=== PATIENT | female | born 1945 | race Caucasian/White ===

== ENCOUNTER 2017-12-27 06:24 | Inpatient (IN) | payer OTHER ==
[~2017-12-27] VITALS: Ht 157.5 cm; Wt 65.5 kg
[~2017-12-27 06:24] MED LIST: CYCLOBENZAPRINE10 M1 PO
--- NOTE | 2017-12-27 07:46 | ED GI/GU/ABDOMINAL COMPLAINT ---
See Addendum History of Present Illness General Chief Complaint: General Adult Stated Complaint: ?RECTAL BLEEDING PER PT Source: patient Exam Limitations: no limitations Vital Signs & Intake/Output Vital Signs & Intake/Output Vital Signs Date Time Temp Pulse Resp B/P B/P Pulse O2 O2 Flow FiO2 Mean Ox Delivery Rate 12/27 836 97.5 78 20 135/61 98 Room Air 12/27 636 97.5 88 20 168/74 98 Room Air Allergies Coded Allergies: Sulfa (Sulfonamide Antibiotics) (Intermediate, RASH 12/27/17) Penicillins (Intermediate, NAUSEA 12/27/17) Uncoded Allergies: BLOOD PRESSURE MEDICINE (Intermediate, RASH, HIVES 04/24/14) Reconcile Medications Cyclobenzaprine HCl 10 MG TABLET 1 TAB PO TID PRN muscle strain/spasm Triage Note: PT TO ED C/O RECTAL BLEEDING SINCE THIS AM. DENIES BLOOD THINNERS. STATES SHE NOTICED IT WHILE VOIDING THIS AM. DENIES ABD PAIN, N/V/D. STATES BLOOD COULD BE FROM VAGINA, PT UNSURE. Triage Nurses Notes Reviewed? yes ? N Is pt currently ? No HPI: 72-year-old female with history of diverticulosis presents with GI bleeding this morning. Negative for blood thinners. Patient was voiding and noticed blood in the toilet and on her stool and tissue paper. Negative for lightheaded or abdominal pain. Past History Travel History Traveled to [place] past 21 day No Medical History Any Pertinent Medical History? see below for history Neurological: NONE EENT: NONE Cardiovascular: hypertension, hyperlipidemia Respiratory: NONE Gastrointestinal: diverticulitis, GERD Hepatic: NONE Renal: NONE Musculoskeletal: NONE Psychiatric: NONE Endocrine: hypothyroidism Surgical History Surgical History: non-contributory Psychosocial History What is your primary language Kazakh Tobacco Use: Quit >30 days ago ETOH Use: denies use Illicit Drug Use: denies illicit drug use Family History Hx Contributory? No Review of Systems Review of Systems Constitutional: Reports: no symptoms. EENTM: Reports: no symptoms. Respiratory: Reports: no symptoms. Cardiovascular: Reports: no symptoms. GI: Reports: no symptoms, bloody stool. Genitourinary: Reports: no symptoms. Musculoskeletal: Reports: no symptoms. Skin: Reports: no symptoms. Neurological/Psychological: Reports: no symptoms. Hematologic/Endocrine: Reports: no symptoms. Immunologic/Allergic: Reports: no symptoms. All Other Systems: Reviewed and Negative Physical Exam Physical Exam General Appearance: well developed/nourished, no apparent distress, comfortable Respiratory: normal breath sounds, lungs clear Cardiovascular: regular rate/rhythm Gastrointestinal: soft, non-tender, FOBT+ with gross blood upon KEE. Rectal: normal rectal tone, bloody stool, hemmorrhoids Core Measures ACS in differential dx? No Sepsis Present: No Sepsis Focused Exam Completed? No Progress Differential Diagnosis: hemorrhoids, GI bleed, vaginal bleeding Plan of Care: Orders Procedure Date/time Status Heart Healthy Diet 12/[address] in observation 12/27 938 Active ED Holding Orders 12/27 938 Active Code Status 12/27 938 Active TROPONIN LEVEL 12/27 712 Complete PARTIAL THROMBOPLASTIN TIME 12/27 712 Complete PROTHROMBIN TIME 12/27 712 Complete COMPREHENSIVE METABOLIC PANEL 12/27 712 Complete CBC WITHOUT DIFFERENTIAL 12/27 712 Complete EKG 12/27 712 Active TYPE & SCREEN (NOT X-MATCH) 12/27 712 Complete Laboratory Tests 12/27/1716: PT 11.2, INR 1.03, APTT 32 12/27/17 0749: Anion Gap 6, Estimated GFR 54 L, BUN/Creatinine Ratio 25.0, Glucose 99, Calcium 9.4, Total Bilirubin 0.4, AST 23, ALT 27, Alkaline Phosphatase 60, Troponin I < 0.01, Total Protein 6.6, Albumin 4.0, Globulin 2.6, Albumin/Globulin Ratio 1.5, CBC w Diff NO MAN DIFF REQ, RBC 3.56 L, MCV 92.0, MCH 31.2 H, MCHC 34.0, RDW 13.9, MPV 8.9, Gran % 51.5, Lymphocytes % 35.3, Monocytes % 7.6, Eosinophils % 5.3 H, Basophils % 0.3, Absolute Granulocytes 3.4, Absolute Lymphocytes 2.3, Absolute Monocytes 0.5, Absolute Eosinophils 0.3, Absolute Basophils 0 Initial ED EKG: normal axis, normal intervals, normal p-waves, normal QRS complex, normal sinus rhythm, no ST T wave changes Departure Departure Disposition: STILL A PATIENT Condition: Stable Clinical Impression Primary Impression: GI bleed Qualifiers: GI bleed type/associated pathology: unspecified gastrointestinal hemorrhage type Qualified Code: K92.2 - Gastrointestinal hemorrhage, unspecified Referrals: Meghann White APRN (PCP/Family) Departure Forms: Customer Survey General Discharge Information Comments Spoke with patient regarding laboratory evaluation and the need for an observational admission. Patient demonstrated understanding and agreed to admission.
[2017-12-27 08:00] LABS: ABSOLUTE BASOPHIL COUNT 0 /CUMM (0.0-0.2); ABSOLUTE EOSINOPHIL COUNT 0.3 /CUMM (0.0-0.7); ABSOLUTE GRANULOCYTE CT 3.4 /CUMM (1.4-6.5); ABSOLUTE LYMPH COUNT 2.3 /CUMM (1.2-3.4); ABSOLUTE MONOCYTE COUNT 0.5 /CUMM (0.10-0.60); BASOPHIL % 0.3 % (0.0-2.0); EOSINOPHIL % 5.3 % (0-5); GRANULOCYTE % 51.5 % (42.2-75.2); HEMATOCRIT 32.8 % (37-47); MEAN CORPUSCULAR HGB 31.2 PG (27.0-31.0); MEAN PLATELET VOLUME 8.9 FL (7.4-10.4); RBC DISTRIBUTION WIDTH 13.9 % (11.5-14.5); RED BLOOD CELL CT 3.56 /CUMM (4.20-5.40); WHITE BLOOD CELL COUNT 6.6 /CUMM (4.8-10.8)
[2017-12-27 08:17] LABS: PLATELET COUNT 206 /CUMM (130-400)
[2017-12-27 09:29] LABS: PT 11.2 SEC (9.4-12.5); PTT 32 SEC (25-37)
[2017-12-27] MEDS ORDERED: LIPITOR10 M1 PO (09:42)
[2017-12-27] MEDS ORDERED: LEVOTHYROXINE50 MCG PO (09:42)
[2017-12-27] MEDS ORDERED: HYZAAR 50-12.51 EACH PO (10:11)
--- NOTE | 2017-12-27 10:30 | History & Physical ---
Baljinder Carter MD 12/27/17 1030: General Information and HPI History of Present Illness: 72-year-old woman with past medical history of hypertension, hyperlipidemia, GERD, diverticulosis, and hypothyroidism seen for evaluation of bright red blood per rectum. Patient reportedly woke up early this morning to use the restroom and noticed that there was a small amount of bright red blood streaked on the toilet paper and a somewhat larger amount in the toilet. Patient became scared and came to the [facility] for evaluation. Patient underwent a screening colonoscopy with her health services information specialist Dr. Downs on 11/01/17 that demonstrated extensive left-sided diverticulosis with small internal hemorrhoids. Patient denies ever having had an episode like this before. She does not take blood thinners or aspirin and very rarely takes NSAIDs for headaches. She was not constipated or straining during her bowel movement this morning and denies any abdominal pain, nausea, vomiting, or diarrhea. Review of systems Additionally she denies any headache, fever, chills, chest pain, palpitations, heartburn, shortness breath, cough. Objective Vitals-temperature 97.5, HR 78-88, RR 20, BP 135-168/61-74, SPO2 98% room air Physical exam -General: Well-developed, well-nourished elderly woman in no acute distress -HEENT: NCAT, PERRLA, EOMI, anicteric sclera, moist mucous membranes -Neck: Supple, no JVD, trachea midline -Cardio: Normal S1/S2 without murmurs/gallops/rubs; regular rate and rhythm -Pulmonary: Clear to auscultation bilaterally -Abdomen: Soft, nontender, nondistended, bowel sounds intact; reportedly guaiac positive brown stool on KEE per ED provider -Neuro: Awake and alert, cranial nerves II through XII grossly intact -Extremities: No edema, normal pulses Diagnostics -CBC: WBC 6.6, hemoglobin 11.1, hematocrit 32.8, platelet 206 -BMP: Sodium 139, potassium 4.1, chloride 104, CO2 29, BUN 25, creatinine 1.0, anion gap 6, glucose 99 -LFT: Within normal limits -Miscellaneous: Troponin I <0.01 INR 1.03 -EKG: Normal sinus rhythm without any ST-T wave segment changes -Screening colonoscopy 11/01/17: 1. Left-sided diverticulosis 2. Small internal hemorrhoids. -EGD with biopsy/balloon dilation 08/02/17: 1. Nonobstructing Schatzki's ring status post balloon dilation to 20 mm with disruption of the ring. 2. 2-3 cm sliding hiatal hernia. 3. Erosive duodenitis status post antral biopsies. Assessment 72-year-old woman with multiple medical problems significant for diverticulosis with recent colonoscopy demonstrating extensive left-sided diverticulosis and small internal hemorrhoids seen for evaluation of new bright red blood per rectum. Patient's bright red blood per rectum may be due to a mild diverticular bleed versus simply hemorrhoidal bleeding. She remains hemodynamically stable without any tachycardia or significant effect on her blood pressure. Her hemoglobin/ hematocrit are within acceptable limits without any recent values to compare to. Patient is being placed under observation on the general medicine floor for hemoglobin monitoring, intravenous fluids, and GI consultation. Problem list -Lower GI bleed, probable diverticular versus hemorrhoidal -History of diverticulosis -History of Schatzki ring -hypertension -Hyperlipidemia -GERD -Hypothyroidism Plan -Place under observation on general medicine floor -2 large-bore peripheral IVs -Normal saline at 75 mL/h -Guaiac all stools -Continue home meds: Atorvastatin, famotidine, levothyroxine, losartan, hydrochlorothiazide -Consider GI consult should patient's bleeding not improve/or worsen -Type and cross -Monitor hemoglobin/hematocrit -Pain control with acetaminophen -Clear liquid diet -DVT prophylaxis with Alps, no pharmacologic prophylaxis due to active bleed -Full code Allergies/Medications Allergies: Coded Allergies: Sulfa (Sulfonamide Antibiotics) (Intermediate, RASH 12/27/17) Penicillins (Intermediate, NAUSEA 12/27/17) Uncoded Allergies: BLOOD PRESSURE MEDICINE (Intermediate, RASH, HIVES 04/24/14) Home Med list Atorvastatin Calcium (Lipitor) 10 MG TABLET 1 TAB PO QPM CHOLESTEROL ( Reported) Famotidine (Pepcid) 20 MG TABLET 1 TAB PO BID GERD (Reported) Levothyroxine Sodium 50 MCG TABLET 1 TAB PO DAILY AC THYROID (Reported) Losartan/Hydrochlorothiazide (Hyzaar 50-12.5 Tablet) 50 MG-12.5 MG TABLET 1 TAB PO DAILY HEART (Reported) Wheat Dextrin (Benefiber) 3 GRAM/3.5 GRAM POWD.PACK 3 G PO DAILY CONSTIPATION (Reported) Past History Travel History Traveled to [place] past 21 day No Medical History Neurological: NONE EENT: NONE Cardiovascular: hypertension, hyperlipidemia Respiratory: NONE Gastrointestinal: diverticulitis, GERD Hepatic: NONE Renal: NONE Musculoskeletal: NONE Psychiatric: NONE Endocrine: hypothyroidism Surgical History Surgical History: non-contributory Past Family/Social History Psychosocial History ETOH Use: denies use Illicit Drug Use: denies illicit drug use Review of Systems Review of Systems Constitutional: Reports: see HPI. Exam & Diagnostic Data Last 24 Hrs of Vital Signs/I&O Vital Signs Date Time Temp Pulse Resp B/P B/P Pulse O2 O2 Flow FiO2 Mean Ox Delivery Rate 12/27 1139 98.1 66 18 135/61 12/27 1026 98.1 66 18 135/61 98 Room Air 12/27 0837 97.5 78 20 135/61 98 Room Air 12/27 0637 97.5 88 20 168/74 98 Room Air Intake & Output 12/27 1600 12/27 0800 09 0000 Intake Total Output Total Balance Patient 65.317 kg Weight Weight Estimated Measurement Method Assessment/Plan As Ranked By This Provider Problem List: 1. GI bleed Qualifiers GI bleed type/associated pathology: unspecified gastrointestinal hemorrhage type Qualified Code: K92.2 - Gastrointestinal hemorrhage, unspecified Core Measures/Misc (01/08) Acute Coronary Syndrome ACS Diagnosis: No Congestive Heart Failure Congestive Heart Failure Diagnosis No Cerebrovascular Accident CVA/TIA Diagnosis: No VTE (View Protocol) VTE Risk Factors Age>40 No Mechanical VTE Prophylaxis d/t N/A MechProphylax Ordered No VTE Pharm Prophylaxis d/t Bleeding (Active) Sepsis (View protocol) Sepsis Present: No If YES complete Sepsis Event Note If YES complete Sepsis Event Note Sofia Paniagua MD 12/27/17 1154: Core Measures/Misc (01/08) Sepsis (View protocol) If YES complete Sepsis Event Note If YES complete Sepsis Event Note Attending MD Review Statement Attending Statement Attending MD Statement: examined this patient, discuss w/resident/PA/AUTOMOTIVE SERVICE ASSISTANT, agreed w/resident/PA/AUTOMOTIVE SERVICE ASSISTANT, reviewed EMR data (avail), discussed with nursing, discussed with case mgmt, amended to note Attending Assessment/Plan: 72-year-old female with past medical history significant for hypertension, hyperlipidemia, hypothyroidism, diverticulosis found on a recent colonoscopy this year as well as erosive duodenitis and nonobstructing Schatzki ring status post balloon dilatation and biopsy results came out for chronic inflammation with H pylori stain negative. Patient presented with bright red blood per rectum this morning. She claims that she had one episode this morning and she got worried and presented to the emergency room. She denies any constipation. On her colonoscopy from this year, small internal hemorrhoids were found. Patient denies any tenesmus, abdominal pain, fevers, chills, nausea or vomiting. She otherwise feels okay. She denies any melanotic stools or hematemesis. No recent fevers or chills. Vital Signs Date Time Temp Pulse Resp B/P B/P Pulse O2 O2 Flow FiO2 Mean Ox Delivery Rate 12/27 1139 98.1 66 18 135/61 12/27 1026 98.1 66 18 13561 98 Room Air 12/27 0837 97.5 78 20 135/61 98 Room Air 12/27 0637 97.5 88 20 168/74 98 Room Air on exam; aox3, nad. cv; s1,s2, rrr resp; clear abd; soft, nt, bs+ ext; no edema Laboratory Tests 12/27 12/27 0916 0749 Chemistry Sodium (137 - 145 mmol/L) 139 Potassium (3.5 - 5.1 mmol/L) 4.1 Chloride (98 - 107 mmol/L) 104 Carbon Dioxide (22 - 30 mmol/L) 29 Anion Gap (5 - 16) 6 BUN (7 - 17 mg/dL) 25 H Creatinine (0.5 - 1.0 mg/dL) 1.0 Estimated GFR (>60 ml/min) 54 L BUN/Creatinine Ratio (7 - 25 %) 25.0 Glucose (65 - 99 mg/dL) 99 Calcium (8.4 - 10.2 mg/dL) 9.4 Total Bilirubin (0.2 - 1.3 mg/dL) 0.4 AST (14 - 36 U/L) 23 ALT (9 - 52 U/L) 27 Alkaline Phosphatase (<127 U/L) 60 Troponin I (< 0.11 ng/ml) < 0.01 Total Protein (6.3 - 8.2 g/dL) 6.6 Albumin (3.5 - 5.0 g/dL) 4.0 Globulin (1.9 - 4.2 gm/dL) 2.6 Albumin/Globulin Ratio (1.1 - 2.2 %) 1.5 Coagulation PT (9.4 - 12.5 SEC) 11.2 INR (0.90 - 1.19) 1.03 APTT (25 - 37 SEC) 32 Hematology CBC w Diff NO MAN DIFF REQ WBC (4.8 - 10.8 /CUMM) 6.6 RBC (4.20 - 5.40 /CUMM) 3.56 L Hgb (12.0 - 16.0 G/DL) 11.1 L Hct (37 - 47 %) 32.8 L MCV (81.0 - 99.0 FL) 92.0 MCH (27.0 - 31.0 PG) 31.2 H MCHC (33.0 - 37.0 G/DL) 34.0 RDW (11.5 - 14.5 %) 13.9 Plt Count (130 - 400 /CUMM) 206 MPV (7.4 - 10.4 FL) 8.9 Gran % (42.2 - 75.2 %) 51.5 Lymphocytes % (20.5 - 51.1 %) 35.3 Monocytes % (1.7 - 9.3 %) 7.6 Eosinophils % (0 - 5 %) 5.3 H Basophils % (0.0 - 2.0 %) 0.3 Absolute Granulocytes (1.4 - 6.5 /CUMM) 3.4 Absolute Lymphocytes (1.2 - 3.4 /CUMM) 2.3 Absolute Monocytes (0.10 - 0.60 /CUMM) 0.5 Absolute Eosinophils (0.0 - 0.7 /CUMM) 0.3 Absolute Basophils (0.0 - 0.2 /CUMM) 0 EKG>> NSR A/P: 72-year-old female with past medical history significant for hypertension, hyperlipidemia, hypothyroidism, diverticulosis found on a recent colonoscopy this year as well as erosive duodenitis and nonobstructing Schatzki ring status post balloon dilatation and biopsy results came out for chronic inflammation with H pylori stain negative is placed on medical observation with GI bleed. This could be secondary to small internal hemorrhoids that was found on a recent colonoscopy. Patient was also found to have diverticulosis so this could also be secondary to diverticular bleed. Patient will be hydrated gently with IV fluids. Clear liquid diet will be started and if GI does not plan any procedures then it can be advanced as tolerated. Please consult GI. Avoid any antiplatelet agents or any blood thinners at this time. Patient does not take any aspirin and there is no history of any NSAIDs intake. Continue the rest of the medications. DVT Px: ALPS. Full code.
[2017-12-27] MEDS ORDERED: PEPCID20 M1 PO (10:31)
[2017-12-27] MEDS ORDERED: BENEFIBER1 EACH PO (10:34)
--- NOTE | 2017-12-27 15:03 | Cons- Gastroenterology ---
General Information and HPI Consulting Request Date of Consult: 12/27/17 Requested By: Sofia Paniagua MD Reason for Consult: I was called by the hospitalist service today shortly after 12 noon, to assess what appears to be minor lower GI bleeding. Source of Information: patient, old records Exam Limitations: no limitations History of Present Illness: 72 y/o female, HTN, HLD, GERD, hypoT4, osteoporosis, diverticulosis coli, hx colon adenoma, hx hemorrhoids, post recent 11/01/17: colonoscopy (*see below), who presented to the [facility] 12/27/17, at 0624, after awakening earlier this morning to use the restroom. She previously had a normal brown BM the night before. She stated that she felt the urge to urinate this morning, at which point, she felt some rectal discomfort, followed by BRB on the toilet paper, with some BRB in the toilet water. The patient apparently became scared and came to the [facility] ER. There was no melena, nor any additional spontaneous LGIB. She denied any constitutional symptoms, fevers, chills, weight loss, or jaundice. Upon arrival, she was HTN with BP 160/74, P 88, R 20, T 97.5, O2 sat RA 98% The patient was not on any ASA, NSAIDs, antiplatelet agents, or A/C therapy. There was no diarrhea, constipation, obstipation, tenesmus, or change in stool caliber. The patient is on Benefiber. She had no upper GI symptoms, except for her chronic reflux, which was stable, on OTC Pepcid. She had no recurrent dysphagia since her 08/02/17: balloon dilatation of her non-obstructing Schatzki ring. *The patient was hemodynamically stable and afebrile in the ER with O2 sat RA 98%. There reported were no orthostatic changes (in fact, HTN). Digital rectal exam by the ER reportedly revealed brown stool, OB positive, without any fresh blood, with a ? "tear" in the rectum (per pt). She was admitted for observation. There has been no recurrent bleeding since. At one point, according to the patient, she was uncertain if the bleeding was possibly vaginal in nature. The patient then stated the bleeding was rectal in nature. There was no definite hematuria. There was no rectal trauma. She claimed she had a normal RIGGING UP MAN exam at Dr. Duran within the past 2 weeks. There was no associated CP , SOB, palpitations, LOC, etc. +FHx colon Ca (PA x 2- ? age). +FHx endometrial Ca (1 sis). +FHx breast Ca (1 sis). No FHx IBD. *Unfortunately, the patient's last H/H in [facility] was over 12 years ago, and there are no recent labs in the [facility] EMR. *Therefore, I am uncertain what her most recent baseline H/H is. In any event, she did not appear to be actively bleeding. There was no prior hx blood transfx. Previous GI workup: 09/09/05: GI procedure per Dr. Treviño- purged. 10/29/14: Colonoscopy per Dr. Downs to cecum (screening)-left-sided diverticula, small internal hemorrhoids, 1 cm cecal lipoma- verified by bx; 3 polyps removed, maximum diameter 1 cm- all benign TA. 08/02/17: EGD per Dr. Downs (for dysphagia/GERD)-Z line at 34 cm, nonobstructing Schatzki ring-> balloon dilated to 20 mm, 2-3 cm sliding hernia, erosive duodenitis, bx gastric antrum-mild to mod gastritis, HP negative. (OTC H2B or OTC PPI were rxd). 11/01/17: *Surveillance colonoscopy to cecum per Dr. Downs- left-sided diverticula with sharp angulations requiring a pediatric colonoscope, small internal hemorrhoids, known 1 cm cecal lipoma left intact, no recurrent polyps ( based on the pt's age & angulated colon, making the exam technically difficult, further routine surveillance colonoscopies were not recommended). 12/27/17: 748- Admission labs- WBC 6.6, H/H 11.1/32.8, MCV 92, RDW 13.9, PLT 206, glucose 99, BUN/CR 25/1.0, GFR 54, Na 139. K 4.1, HCO3 29, AG 6, Ca 9.4, albumin 4.0, globulin 2.6, TBil 0.4, alk phos 60, AST 23, ALT 27, troponin < 0.01, (*no U/A sent). 12/27/17: 0916- PT 11.2, INR 1.03, PTT 32 12/27/17: EKG- NSR @ 72, nl axis, nl int, PRWP V1-V3, without acute ischemic changes. Allergies/Medications Allergies: Coded Allergies: Sulfa (Sulfonamide Antibiotics) (Intermediate, RASH 12/27/17) Penicillins (Intermediate, NAUSEA 12/27/17) Uncoded Allergies: BLOOD PRESSURE MEDICINE (Intermediate, RASH, HIVES 04/24/14) Home Med List: Atorvastatin Calcium (Lipitor) 10 MG TABLET 1 TAB PO QPM CHOLESTEROL ( Reported) Famotidine (Pepcid) 20 MG TABLET 1 TAB PO BID GERD (Reported) Levothyroxine Sodium 50 MCG TABLET 1 TAB PO DAILY AC THYROID (Reported) Losartan/Hydrochlorothiazide (Hyzaar 50-12.5 Tablet) 50 MG-12.5 MG TABLET 1 TAB PO DAILY HEART (Reported) Wheat Dextrin (Benefiber) 3 GRAM/3.5 GRAM POWD.PACK 3 G PO DAILY CONSTIPATION (Reported) Current Medications: Current Medications Sig/Timmy Start time Last Medication Dose Route Stop Time Status Admin Acetaminophen 650 MG Q6P PRN 12/27 1045 AC PO Atorvastatin Calcium 10 MG QPM 12/27 2100 AC PO Famotidine 20 MG BID 12/27 1100 AC 12/27 PO 1139 Heparin Sodium 5,000 UNIT Q8 12/27 1400 CAN (Porcine) SC Hydrochlorothiazide 12.5 MG DAILY 12/27 1047 AC 12/27 PO 1139 Levothyroxine Sodium 0.05 MG DAILY AC 12/27 1044 AC 12/27 PO 1116 Losartan Potassium 50 MG DAILY 12/27 1044 AC 12/27 PO 1139 Sodium Chloride 1,000 ML .[id number] 12/27 1045 AC 12/27 IV 1139 Past History Travel History Traveled to [place] past 21 day No Medical History Blood Transfusion Hx: No Neurological: NONE EENT: NONE Cardiovascular: hypertension, hyperlipidemia Respiratory: NONE Gastrointestinal: GERD, hiatal hernia, diverticulosis coli, Schatzki ring, hx colon adenoma, int hemorrhoids Hepatic: NONE Renal: NONE Musculoskeletal: NONE Psychiatric: NONE Endocrine: hypothyroidism, osteoporosis Blood Disorders: NONE Cancer(s): NONE RIGGING UP MAN/Reproductive: NONE Surgical History Surgical History: cataract removal (OU) Family History Relations & Conditions If Any: FATHER, , Age 52; Cause: Alcohol abuse. MOTHER, ; Cause: Unknown cause of morbidity or mortality. BROTHER PA (*Colon Ca). PA (*Colon Ca). SISTER (Breast Ca). SISTER (Endometrial Ca). Psychosocial History Where Do You Live? Home Who Do You Live With? child Services at Home: None Primary Language: Romanian Smoking Status: Never Smoked ETOH Use: denies use Illicit Drug Use: denies illicit drug use Living Will? no Power of Maintenance Shop Manager/HCP? no Other Social History: . Lives in 2 family house downstairs with her dtr & granddtr. Her son lives upstairs. Pt has 2 kids (1 son & 1 dtr- her son has thyroid disease & her dtr has MS, IDDM, & cocaine abuse). No cigarettes or illicit drugs. 1 small bottle wine Q weekend. Pt works at [employer], in [place], [place] 1 day/week. Functional Ability ADLs Independent: dressing, eating, toileting, bathing. Ambulation: independent IADLs Independent: shopping, housework, finances, food prep, telephone, transportation , medication admin. Employment History Employment: Employed Profession/Employer: [employer] 1 day/week Review of Systems Review of Systems: Full 14 point ROS otherwise noncontributory, and as above. Review of Systems Constitutional: Denies: chills, diaphoresis, fever, malaise, weakness, unexplained weight loss. EENTM: Denies: blurred vision, double vision, visual changes, eye pain, eye drainage, eye tearing, icterus, ear discharge, ear pain, ear redness, hearing changes, nasal congestion, epistaxis, nasal pain, throat pain, throat swelling, mouth pain, tooth pain. Cardiovascular: Denies: chest pain, edema, orthopena, palpitations, peripheral edema, syncope. Respiratory: Denies: cough, hemoptysis, orthopnea, short of breath, sputum production, stridor, wheezing. GI: Reports: bloody stool. Denies: abdominal pain, bloating, constipation, diarrhea , distention, bowel incontinence, melena, nausea, changes in stool, vomiting, steatorrhea. Genitourinary: Denies: discharge, dysuria, frequency, hematuria, hesitation, nocturia, pain, urgency. Musculoskeletal: Denies: back pain, gout, joint pain, joint swelling, muscle pain, muscle stiffness, neck pain. Skin: Denies: cysts, change in skin color, change in hair/nails, dryness, erythema, jaundice, lesions, lymphangitis, lumps, moles, rash. Neurological/Psychological: Denies: anxiety, ataxia, cognitive dysfunction, confusion, depressed, dementia, emotional problems, headache, numbness, paresthesia, pre-existing deficit, petit mal seizures, tingling, tremors, tonic-clonic seizures, unable to move lower ext , unable to move upper ext, weakness. Hematologic/Endocrine: Denies: bruising, bleeding, polyuria, polydipsia. Immunologic/Allergic: Denies: splenectomy, HIV/AIDS, lymphadenopathy. All Other Systems: Reviewed and Negative Exam & Diagnostic Data Vital Signs and I&O Vital Signs Date Time Temp Pulse Resp B/P B/P Pulse O2 O2 Flow FiO2 Mean Ox Delivery Rate 12/27 1322 98.2 62 20 130/60 98 Room Air 12/27 1139 98.1 66 18 135/61 12/27 1026 98.1 66 18 135/61 98 Room Air 12/27 0837 97.5 78 20 135/61 98 Room Air 12/27 0637 97.5 88 20 168/74 98 Room Air Intake & Output 12/27 1600 12/27 0400 12/26 1600 12/26 0400 12/25 1600 12/25 0400 Intake Total Output Total Balance Patient 144 lb Weight Weight Estimated Measurement Method Physical Exam: Well-developed, well-nourished, elderly female, in no apparent distress. Sclera anicteric. Conjunctiva pink. Oropharynx clear. No oral thrush. No aphthous ulcers. There is no adenopathy, thyromegaly, or JVD. No peripheral stigmata of inflammatory bowel disease or chronic liver disease on exam. No spiders on the anterior chest wall. No CVA tenderness. Lungs: clear to A&P. No wheezing, rales , or rhonchi. Heart exam: regular rate rhythm, S1 and S2, without any murmur. Abdominal exam: normal bowel sounds, soft belly, nontender, without guarding or rebound. No mass. No organomegaly. No fluid shift. No pulsatile mass. No epigastric bruit. *Repeat digital rectal exam (*done by myself in the ER 09/08, room #12, with the assistnce of Viviana)-brown stool, OB negative, tender , anal fissure at 11:00, no fresh blood, normal sphincter tone, no mass, no external hemorrhoid. Extremities: without C, C, or E. No palpable cords. Mild DJD. No palmar erythema. No Dupuytren's contractures. Distal pulses 2+ bilaterally. DTRs 2+ bilaterally. Right handed. CN II-XII intact. Motor 5/5 B/ L. Alert and oriented x 3. No tremor. No asterixs. Results Pertinent Lab Results: Laboratory Tests 12/27 12/27 0916 0749 Chemistry Sodium (137 - 145 mmol/L) 139 Potassium (3.5 - 5.1 mmol/L) 4.1 Chloride (98 - 107 mmol/L) 104 Carbon Dioxide (22 - 30 mmol/L) 29 Anion Gap (5 - 16) 6 BUN (7 - 17 mg/dL) 25 H Creatinine (0.5 - 1.0 mg/dL) 1.0 Estimated GFR (>60 ml/min) 54 L BUN/Creatinine Ratio (7 - 25 %) 25.0 Glucose (65 - 99 mg/dL) 99 Calcium (8.4 - 10.2 mg/dL) 9.4 Total Bilirubin (0.2 - 1.3 mg/dL) 0.4 AST (14 - 36 U/L) 23 ALT (9 - 52 U/L) 27 Alkaline Phosphatase (<127 U/L) 60 Troponin I (< 0.11 ng/ml) < 0.01 Total Protein (6.3 - 8.2 g/dL) 6.6 Albumin (3.5 - 5.0 g/dL) 4.0 Globulin (1.9 - 4.2 gm/dL) 2.6 Albumin/Globulin Ratio (1.1 - 2.2 %) 1.5 Coagulation PT (9.4 - 12.5 SEC) 11.2 INR (0.90 - 1.19) 1.03 APTT (25 - 37 SEC) 32 Hematology CBC w Diff NO MAN DIFF REQ WBC (4.8 - 10.8 /CUMM) 6.6 RBC (4.20 - 5.40 /CUMM) 3.56 L Hgb (12.0 - 16.0 G/DL) 11.1 L Hct (37 - 47 %) 32.8 L MCV (81.0 - 99.0 FL) 92.0 MCH (27.0 - 31.0 PG) 31.2 H MCHC (33.0 - 37.0 G/DL) 34.0 RDW (11.5 - 14.5 %) 13.9 Plt Count (130 - 400 /CUMM) 206 MPV (7.4 - 10.4 FL) 8.9 Gran % (42.2 - 75.2 %) 51.5 Lymphocytes % (20.5 - 51.1 %) 35.3 Monocytes % (1.7 - 9.3 %) 7.6 Eosinophils % (0 - 5 %) 5.3 H Basophils % (0.0 - 2.0 %) 0.3 Absolute Granulocytes (1.4 - 6.5 /CUMM) 3.4 Absolute Lymphocytes (1.2 - 3.4 /CUMM) 2.3 Absolute Monocytes (0.10 - 0.60 /CUMM) 0.5 Absolute Eosinophils (0.0 - 0.7 /CUMM) 0.3 Absolute Basophils (0.0 - 0.2 /CUMM) 0 Imaging/Other Studies: 12/27/17: EKG- NSR @ 72, nl axis, nl int, PRWP V1-V3, without acute ischemic changes. Assessment/Plan Assessment/Recommendations: 72 y/o female, HTN, HLD, GERD, hypoT4, osteoporosis, diverticulosis coli, hx colon adenoma, hx hemorrhoids, post recent 11/01/17: colonoscopy (*see below), who presented to the [facility] ER 12/27/17, at 0624, after awakening earlier this morning to use the restroom. She previously had a normal brown BM the night before. She stated that she felt the urge to urinate this morning, at which point, she felt some rectal discomfort, followed by BRB on the toilet paper, with some BRB in the toilet water. The patient apparently became scared and came to the [facility] ER. There was no melena, nor any additional spontaneous LGIB. She denied any constitutional symptoms, fevers, chills, weight loss, or jaundice. Upon arrival, she was HTN with BP 160/74, P 88, R 20, T 97.5, O2 sat RA 98% The patient was not on any ASA, NSAIDs, antiplatelet agents, or A/C therapy. There was no diarrhea, constipation, obstipation, tenesmus, or change in stool caliber. The patient is on Benefiber. She had no upper GI symptoms, except for her chronic reflux, which was stable, on OTC Pepcid. She had no recurrent dysphagia since her 08/02/17: balloon dilatation of her non-obstructing Schatzki ring. *The patient was hemodynamically stable and afebrile in the ER with O2 sat RA 98%. There reported were no orthostatic changes (in fact, HTN). Digital rectal exam by the ER reportedly revealed brown stool, OB positive, without any fresh blood, with a ? "tear" in the rectum (per pt). She was admitted for observation. There has been no recurrent bleeding since. At one point, according to the patient, she was uncertain if the bleeding was possibly vaginal in nature. The patient then stated the bleeding was rectal in nature. There was no definite hematuria. There was no rectal trauma. She claimed she had a normal RIGGING UP MAN exam at Dr. Duran within the past 2 weeks. There was no associated CP , SOB, palpitations, LOC, etc. +FHx colon Ca (PA x 2- ? age). +FHx endometrial Ca (1 sis). +FHx breast Ca (1 sis). No FHx IBD. *Unfortunately, the patient's last H/H in [facility] was over 12 years ago, and there are no recent labs in the [facility] EMR. *Therefore, I am uncertain what her most recent baseline H/H is. In any event, she did not appear to be actively bleeding. There was no prior hx blood transfx. Previous GI workup: 09/09/05: GI procedure per Dr. Treviño- purged. 10/29/14: Colonoscopy per Dr. Downs to cecum (screening)-left-sided diverticula, small internal hemorrhoids, 1 cm cecal lipoma- verified by bx; 3 polyps removed, maximum diameter 1 cm- all benign TA. 08/02/17: EGD per Dr. Downs (for dysphagia/GERD)-Z line at 34 cm, nonobstructing Schatzki ring-> balloon dilated to 20 mm, 2-3 cm sliding hernia, erosive duodenitis, bx gastric antrum-mild to mod gastritis, HP negative. (OTC H2B or OTC PPI were rxd). 11/01/17: *Surveillance colonoscopy to cecum per Dr. Downs- left-sided diverticula with sharp angulations requiring a pediatric colonoscope, small internal hemorrhoids, known 1 cm cecal lipoma left intact, no recurrent polyps ( based on the pt's age & angulated colon, making the exam technically difficult, further routine surveillance colonoscopies were not recommended). 12/27/17: 748- Admission labs- WBC 6.6, H/H 11.1/32.8, MCV 92, RDW 13.9, PLT 206, glucose 99, BUN/CR 25/1.0, GFR 54, Na 139. K 4.1, HCO3 29, AG 6, Ca 9.4, albumin 4.0, globulin 2.6, TBil 0.4, alk phos 60, AST 23, ALT 27, troponin < 0.01 12/27/17: 915- PT 11.2, INR 1.03, PTT 32 12/27/17: EKG- NSR @ 72, nl axis, nl int, PRWP V1-V3, without acute ischemic changes. The patient's current story is small amount of blood per rectum, after attempting to urinate. This was associated with some rectal pain. *She had a fissure at 11:00 on exam. Currently, at the time of my GI consult, repeat digital rectal exam revealed brown stool, OB negative, with fissure at 11:00, no mass, no external hemorrhoid, normal sphincter tone. Please note, the patient just had a 11/01/17: Colonoscopy to the cecum with the *pediatric colonoscope by Dr. [id number] diverticula, angulated sigmoid and left colon, small internal hemorrhoids, no recurrent polyps. No other mucosal abnormalities seen. Unfortunately, I do not know the patient's most recent baseline H/H, as her last CBC available in the computer was over 12 years ago. Based on the above relatively recent colonoscopy, along with her clinical findings and currently brown OB-negative stool, most likely, the patient's main issue was a small anal fissure. It is possible she could have bled a little from internal hemorrhoids, but this usually does not give rectal pain. It is possible she could have had a self-limited diverticular bleed, but again, this usually does not give rectal pain. No gross lesions, colitis, or angiodysplasias were seen on the above recent colonoscopy, per Dr. Downs. SUGGEST- Clears po & eventually advance to high-fiber, heart healthy, 2g Na+ diet, supplemented with FiberCon 2 tabs daily. Check CBC BID. T&H 2u PRBC. Gentle IVF. O2 prn. Strict I/O's. *Rectiv NTG ointment 0.4%- apply intra-anally Q12h x 3 weeks. Stool softeners as needed. Tucks pads. Preparation H. Keep Hgb > 7 ( no documented ASHD). Doubt need for CTA, but will reconsider this if patient has significant active spontaneous LGIB. She has a borderline GFR, and would need prophylactic Mucomyst with the IV contrast. T & C 2u PRBC. *Please call GI if the patient decompensates. Otherwise, I anticipate discharge tomorrow morning. Consider checking U/A and RIGGING UP MAN exam, as per medical team. Further inpatient GI follow-up, as needed. She can follow-up with Dr. Downs for GI, as an outpatient. The patient has the office number. The above was discussed with Dr. Paniagua this afternoon. Problem List: 1. Rectal bleeding 2. Anal fissure 3. Diverticulosis of colon 4. History of adenomatous polyp of colon 5. GERD (gastroesophageal reflux disease) 6. Hiatal hernia 7. Schatzki's ring 8. Family history of colon cancer Copies To: Siva LI,Sofia; Meghann White APRN; Himanshu LI,Micah Consult Acknowledgment - Thank you for your consult request.
[2017-12-27] MEDS ORDERED: TUCKS1 EACH RC (20:23)
[2017-12-27] MEDS ORDERED: MIRALAX119 GM PO (20:23)
[2017-12-27] MEDS ORDERED: COLACE100 M1 PO (20:23)
[2017-12-27] MEDS ORDERED: RECTIV30 GM RC (20:25)
[2017-12-28 06:37] VITALS: BP 134/70
--- NOTE | 2017-12-28 07:15 | PN- Housestaff ---
Johnson LI,Alfonso 12/28/17 0715: Subjective Follow-up For: lower GI bleed anal fissure Subjective: no complaints, no melena or further BRBPR advancing diet no N/V/D Review of Systems Constitutional: Reports: see HPI. Objective Last 24 Hrs of Vital Signs/I&O Vital Signs Date Time Temp Pulse Resp B/P B/P Pulse O2 O2 Flow FiO2 Mean Ox Delivery Rate 12/28 0849 77 134/70 12/28 0637 97.6 77 18 134/70 97 Room Air 12/27 2153 Room Air 12/27 2012 96.8 74 18 158/84 99 Room Air 12/27 1748 98.7 73 20 155/67 100 Room Air 12/27 1545 96.9 64 18 142/63 99 Room Air Intake & Output 12/28 1600 12/28 0800 12/28 0000 Intake Total 700 240 Output Total 400 Balance 700 -160 Intake, IV 600 Intake, Oral 100 240 Output, Urine 400 Patient 65.544 kg 72.575 kg Weight Weight Reported by Patient Measurement Method Physical Exam General Appearance: Alert, Oriented X3, Cooperative, No Acute Distress Cardiovascular: Regular Rate, Normal S1, Normal S2, No Murmurs Lungs: Clear to Auscultation, Normal Air Movement Abdomen: Normal Bowel Sounds, Soft, No Tenderness, No Masses Extremities: No Clubbing, No Cyanosis, No Edema, Normal Pulses Current Medications: Current Medications Sig/Timmy Start time Last Medication Dose Route Stop Time Status Admin Acetaminophen 650 MG Q6P PRN 12/27 1045 AC 12/28 PO 1058 Atorvastatin Calcium 10 MG QPM 12/27 2100 AC PO Docusate Sodium 100 MG BID 12/27 2100 AC 12/28 PO 0949 Famotidine 20 MG BID 12/27 1100 AC 12/28 PO 0949 Hydrochlorothiazide 12.5 MG DAILY 12/27 1047 AC 12/28 PO 0949 Levothyroxine Sodium 0.05 MG DAILY AC 12/27 1044 AC 12/28 PO 0626 Losartan Potassium 50 MG DAILY 12/27 1044 AC 12/28 PO 0949 Nitroglycerin See Dose BID 12/28 09 AC Insts (1) NC Non-Formulary 1 UNIT .[RECTALLY] 12/27 2030 DC Medication ANY Patient Medication 1 ED ONE ONE 12/28 1300 DC Teaching ED 12/28 1301 Polycarbophil 1,250 MG DAILY 12/28 899 AC 12/28 PO 0949 Polyethylene Glycol 17 GM DAILY 12/28 899 AC 12/28 PO 0949 Sodium Chloride 1,000 ML .[id number] 12/27 1045 AC 12/28 IV 0107 Dose Instructions: (1)Nitroglycerin: APPLY INTRA-ANALLY Last 24 Hrs of Lab/Slade Results Last 24 Hrs of Labs/Mics: Laboratory Tests 12/28/17 0725: Anion Gap 5, Estimated GFR > 60, BUN/Creatinine Ratio 17.5, Magnesium 1.9, CBC w Diff NO MAN DIFF REQ, RBC 3.47 L, MCV 91.3, MCH 31.4 H, MCHC 34.5, RDW 14.6 H , MPV 8.6, Gran % 57.4, Lymphocytes % 30.7, Monocytes % 6.9, Eosinophils % 4.6, Basophils % 0.4, Absolute Granulocytes 3.0, Absolute Lymphocytes 1.6, Absolute Monocytes 0.4, Absolute Eosinophils 0.2, Absolute Basophils 0 Assessment/Plan Assessment: 72 year old woman with PMH significant HTN, HLD, hypothyroidism, GERD, diverticulosis, recent colonoscopy demonstrating extensive left-sided diverticulosis and small internal hemorrhoids presented for evaluation of new bright red blood per rectum. Lower GI bleed: Hemodynamically stable No significant changes in serial CBCs Gastroenterology consulted, appreciate recommendations High fiber diet Small anal fissure on exam is likely cause of bleeding, although mild diverticular or hemorrhoidal bleed are also possible Continue Tucks and topical nitroglycerin ointment Tolerated advanced diet with BM today, no melena or BRBPR Follow up with Dr. Downs as an outpatient Hypertension: Continue losartan and HCTZ Hyperlipidemia: Continue atorvastatin GERD: Continue PO PPI Hypothyroidism: Continue synthroid High fiber diet DVT ppx-ALPs, no pharmacologic prophylaxis due to bleeding Full code Stable for discharge, outpatient f/u with PCP and GI Problem List: 1. GERD (gastroesophageal reflux disease) 2. Anal fissure 3. Rectal bleeding 4. GI bleed Pain Ratin Pain Location: n/a Pain Goal: Pain 4 or less Pain Plan: prn Tomorrow's Labs & Rationales: none, discharge Leydi Paniagua MDesha 12/28/17 1256: Attending MD Review Statement Attending Statement Attending MD Statement: examined this patient, discuss w/resident/PA/AUTOMATION MANAGER, agreed w/resident/PA/AUTOMATION MANAGER, reviewed EMR data (avail), discussed with nursing, discussed with case mgmt, amended to note Attending Assessment/Plan: Patient seen and examined, overall doing well. Denies any further GI bleeds. H &H remained stable. Patient's diet has been advanced. Patient was seen by GI yesterday. Anal fissure was found and they recommended nitroglycerin ointment. Vital Signs Date Time Temp Pulse Resp B/P B/P Pulse O2 O2 Flow FiO2 Mean Ox Delivery Rate 12/28 948 77 134/70 12/28 0537 97.6 77 18 134/70 97 Room Air 12/27 2153 Room Air 12/27 2012 96.8 74 18 158/84 99 Room Air 12/27 1748 98.7 73 20 155/67 100 Room Air 12/27 1545 96.9 64 18 142/63 99 Room Air 12/27 1322 98.2 62 20 130/60 98 Room Air on exam: aox3, nad. cv; s1,s2, rrr resp; clear abd; soft, nt, bs+ ext; no edema Laboratory Tests 12/28 724 Chemistry Sodium (137 - 145 mmol/L) 140 Potassium (3.5 - 5.1 mmol/L) 4.0 Chloride (98 - 107 mmol/L) 108 H Carbon Dioxide (22 - 30 mmol/L) 27 Anion Gap (5 - 16) 5 BUN (7 - 17 mg/dL) 14 Creatinine (0.5 - 1.0 mg/dL) 0.8 Estimated GFR (>60 ml/min) > 60 BUN/Creatinine Ratio (7 - 25 %) 17.5 Magnesium (1.6 - 2.3 mg/dL) 1.9 Hematology CBC w Diff NO MAN DIFF REQ WBC (4.8 - 10.8 /CUMM) 5.2 RBC (4.20 - 5.40 /CUMM) 3.47 L Hgb (12.0 - 16.0 G/DL) 10.9 L Hct (37 - 47 %) 31.7 L MCV (81.0 - 99.0 FL) 91.3 MCH (27.0 - 31.0 PG) 31.4 H MCHC (33.0 - 37.0 G/DL) 34.5 RDW (11.5 - 14.5 %) 14.6 H Plt Count (130 - 400 /CUMM) 222 MPV (7.4 - 10.4 FL) 8.6 Gran % (42.2 - 75.2 %) 57.4 Lymphocytes % (20.5 - 51.1 %) 30.7 Monocytes % (1.7 - 9.3 %) 6.9 Eosinophils % (0 - 5 %) 4.6 Basophils % (0.0 - 2.0 %) 0.4 Absolute Granulocytes (1.4 - 6.5 /CUMM) 3.0 Absolute Lymphocytes (1.2 - 3.4 /CUMM) 1.6 Absolute Monocytes (0.10 - 0.60 /CUMM) 0.4 Absolute Eosinophils (0.0 - 0.7 /CUMM) 0.2 Absolute Basophils (0.0 - 0.2 /CUMM) 0 A/P: A/P: 72-year-old female with past medical history significant for hypertension, hyperlipidemia, hypothyroidism, diverticulosis found on a recent colonoscopy this year as well as erosive duodenitis and nonobstructing Schatzki ring status post balloon dilatation and biopsy results came out for chronic inflammation with H pylori stain negative is placed on medical observation with GI bleed.Pt was found to have anal fissure. Nitroglycerin ointment was recommended by GI. No further episodes of GI bleed. H&H remained stable. Diet will be advanced and if she tolerates well then she can be discharged. She will be discharged on nitroglycerin ointment. Patient to be continued on bowel regimen and fiber. Constipation should be avoided. Will continue the rest of her home medications. Patient to follow-up with her primary care doctor and GI as an outpatient.
[2017-12-28 08:20] LABS: ABSOLUTE BASOPHIL COUNT 0 /CUMM (0.0-0.2); ABSOLUTE EOSINOPHIL COUNT 0.2 /CUMM (0.0-0.7); ABSOLUTE LYMPH COUNT 1.6 /CUMM (1.2-3.4); ABSOLUTE MONOCYTE COUNT 0.4 /CUMM (0.10-0.60); BASOPHIL % 0.4 % (0.0-2.0); EOSINOPHIL % 4.6 % (0-5); GRANULOCYTE % 57.4 % (42.2-75.2); HEMATOCRIT 31.7 % (37-47); MEAN CORPUSCULAR HGB 31.4 PG (27.0-31.0); MEAN CORPUSCULAR HGB CONC 34.5 G/DL (33.0-37.0); MEAN CORPUSCULAR VOLUME 91.3 FL (81.0-99.0); MEAN PLATELET VOLUME 8.6 FL (7.4-10.4); PLATELET COUNT 222 /CUMM (130-400); RBC DISTRIBUTION WIDTH 14.6 % (11.5-14.5); RED BLOOD CELL CT 3.47 /CUMM (4.20-5.40); WHITE BLOOD CELL COUNT 5.2 /CUMM (4.8-10.8)
--- NOTE | 2017-12-28 13:34 | Discharge Summary ---
Visit Information Visit Dates Admission Date: 12/27/17 Discharge Date: 12/28/17 Hospital Course Course Attending Physician: Sofia Paniagua MD Primary Care Physician: Meghann White APRN [facility] Course: 72 year old woman with PMH significant HTN, HLD, hypothyroidism, GERD, diverticulosis, recent colonoscopy demonstrating left-sided diverticulosis and small internal hemorrhoids presented for evaluation of new painful bright red blood per rectum, on the toilet paper and toilet bowl. She has no constitutional symptoms nor takes any blood thinners. Her last colonoscopy was in 10/2017. The patient had no hemodynamic instability but was anemic on presentation. Hemoglobin was 11 but the acuity of her anemia was unable to be ascertained because there were no prior labs for comparison. The patient was admitted to general medicine and gastroenterology was consulted. On examination , the patient had a small anal fissure on exam that was likely the cause of her bleeding but mild diverticular or hemorrhoidal bleed are also possible. Gastroenterology recommended Tucks and topical nitroglycerin ointment in addition to a high fiber diet. If there was no more bleeding, further management and re evaluation could be deferred to outpatient. Repeat CBC, showed a stable hemoglobin and the patient had no further episodes of bright red blood per rectum or melena. Her home medications for HTN, HLD, GERD, and hypothyroidism were all continued. The patient was discharged with instructions to follow up with her primary care physician and cardiac/vascular sonographer, Dr. Downs, as an outpatient. Allergies: Coded Allergies: Sulfa (Sulfonamide Antibiotics) (Intermediate, RASH 12/27/17) Penicillins (Intermediate, NAUSEA 12/27/17) Uncoded Allergies: BLOOD PRESSURE MEDICINE (Intermediate, RASH, HIVES 04/24/14) Disposition Summary Disposition Principal Diagnosis: Lower GI bleed likely secondary to small anal fissure although diverticular/ hemorrhoidal bleeding not ruled out Normocytic anemia Additional Diagnosis: Hypertension Hyperlipidemia Hypothyroidism GERD Diverticulosis Discharge Disposition: home or self care Discharge Instructions General Discharge Information Code Status: Full Code Patient's Diet: High fiber diet Patient's Activity: As tolerated Follow-Up Instructions/Appts: Please follow up with your primary care physician and cardiac/vascular sonographer, Dr. Downs, after discharge. Medications at Discharge Discharge Medications: Continue taking these medications: Levothyroxine Sodium (Levothyroxine Sodium) 50 MCG TABLET 1 Tablet ORAL DAILY BEFORE BREAKFAST Comments: Last Taken: 12/28/17 Time: 0630AM Atorvastatin Calcium (Lipitor) 10 MG TABLET 1 Tablet ORAL Every night Comments: NOT GIVEN IN HOSPITAL Losartan/Hydrochlorothiazide (Hyzaar 50-12.5 Tablet) 50 MG-12.5 MG TABLET 1 Tablet ORAL DAILY Comments: Last Taken: 12/28/17 Time: 0949AM Famotidine (Pepcid) 20 MG TABLET 1 Tablet ORAL TWICE DAILY Comments: Last Taken: 12/27/17 Time: 0949AM Wheat Dextrin (Benefiber) 3 GRAM/3.5 GRAM POWD.PACK 3 G ORAL DAILY Comments: NOT GIVEN IN HOSPITAL Start taking the following new medications: Nitroglycerin (Rectiv) 0.4 % (W/W) OINT...G. 1 Application RECTAL THREE TIMES DAILY as needed for HEMORRHOIDS Qty = 90 No Refills Instructions: . Comments: Last Taken: 12/28/17 Time: 1354pm Witch Elly (Tucks) 50 % MED..PAD 1 Application RECTAL THREE TIMES DAILY as needed for HEMORRHOIDS Qty = 120 No Refills Instructions: . Comments: NOT GIVEN IN HOSPITAL Docusate Sodium (Colace) 100 MG CAPSULE 1 Capsule ORAL TWICE DAILY Qty = 60 No Refills Instructions: . Comments: Last Taken: 12/28/17 Time: 0949AM Polyethylene Glycol 3350 (Miralax) 17 GRAM POWD.PACK 1 Packet ORAL DAILY Qty = 30 No Refills Instructions: dissolve in water Comments: Last Taken: 12/28/17 Time: 0949AM Copies To: May White APRN, MD, Jonathan Attending MD Review Statement Documenting Attending: Sofia Paniagua MD Comments: Last Taken: 12/28/17 Time: 0949AM Copies To: May White APRN, MD, Jonathan Attending MD Review Statement Documenting Attending: Sofia Paniagua MD
--- NOTE | 2017-12-28 13:35 | Patient Discharge Instructions ---
Discharge Instructions General Discharge Information You were seen/treated for: lower GI bleeding anal fissure Special Instructions: Please follow up with your primary care physician and tower loader operator, Dr. Downs. Eat a high fiber diet. Diet Recommended Diet: High fiber diet Acute Coronary Syndrome Inclusion Criteria At DC or during hospital stay patient has or had the following: ACS DIAGNOSIS No Discharge Core Measures Meds if any: Prescribed or Continued at Discharge Meds if any: NOT Prescribed or Continued at Discharge Congestive Heart Failure Inclusion Criteria At DC or during hospital stay patient has or had the following: CHF DIAGNOSIS No Discharge Core Measures Meds if any: Prescribed or Continued at Discharge Meds if any: NOT Prescribed or Continued at Discharge Cerebrovascular accident Inclusion Criteria At DC or during hospital stay patient has or had the following: CVA/TIA Diagnosis No Discharge Core Measures Meds if any: Prescribed or Continued at Discharge Meds if any: NOT Prescribed or Continued at Discharge Venous thromboembolism Inclusion Criteria VTE Diagnosis No VTE Type NONE VTE Confirmed by (Test) NONE Discharge Core Measures - Per Current guidelines, there needs to be overlap - treatment for the first 5 days of Warfarin therapy. - If discharged on Warfarin prior to 5 days of - overlap therapy, the patient will need to be - assessed for post discharge needs including - *Post discharge parental anticoagulation - *Warfarin and/or parental anticoagulation education - *Follow up date to check INR post discharge At least 5 days overlap therapy as Inpatient No Meds if any: Prescribed or Continued at Discharge Note: Overlap Therapy is Warfarin and Anticoagulant Meds if any: NOT Prescribed or Continued at Discharge
[2017-12-28] MEDS ORDERED: MIRALAX17 G1 PO (13:36)
[2017-12-28] MEDS ORDERED: TUCKS1 EACH RC (13:37)
[2017-12-28] MEDS ORDERED: COLACE100 M1 PO (13:37)
[2017-12-28] MEDS ORDERED: RECTIV30 GM RC (13:37)
[2017-12-28 15:43] VITALS: BP 122/72
== END 2017-12-28 17:52 | DRG 393 ==
LOC: ERH 06:24 → ERHI 09:54 → 2NB 09:54 → EDBEDREQ 12:07 → ERHI 15:26 → ENRESERV 20:30 → ENTRNSPT 20:52 → EDTRNSPTSTS 21:15 → 2NB 21:30 → CMPTRNSPT 22:07 → ENPENDDIS 12-28 13:56 → ENTRNSPT 12-28 17:45 → EDTRNSPTSTS 12-28 17:49 → 2NB 12-28 17:52 → CMPTRNSPT 12-28 17:59
PROVIDERS: Internal Medicine Interventional Cardiology; Pediatrics
DX: K60.2 Anal fissure, unspecified (principal); K57.31 Diverticulosis of large intestine without perforation or abscess with bleeding; K64.9 Unspecified hemorrhoids; I10 Essential (primary) hypertension; E78.5 Hyperlipidemia, unspecified; E03.9 Hypothyroidism, unspecified; K21.9 Gastro-esophageal reflux disease without esophagitis; K64.8 Other hemorrhoids; Q40.1 Congenital hiatus hernia; Z88.0 Allergy status to penicillin; Z88.2 Allergy status to sulfonamides; Z85.038 Personal history of other malignant neoplasm of large intestine; M81.0 Age-related osteoporosis without current pathological fracture; Z98.49 Cataract extraction status, unspecified eye; K44.9 Diaphragmatic hernia without obstruction or gangrene; D64.9 Anemia, unspecified
CPT/HCPCS: 2NBSP; 36592; 82436; 93005; 93010; J1644